=== PATIENT | female | born 1955 | race Caucasian/White ===

== ENCOUNTER → 2017-07-27 | Day surgery (SDC) | payer OTHER ==
[~2017-07-27] VITALS: Ht 170.2 cm; Wt 74.8 kg
[~2017-07-27] MED LIST: ASPIRIN EC81 M1 PO; ATORVASTATIN CA10 M1 PO; CRANBERRY425 MG PO; FISH OIL 1,0001 EAC1 PO; HAIR, SKIN & N1 EACH PO; MAGNESIUM400 M1 PO; VITAMIN B-121000 MC3 PO; VITAMIN D1000 UNIT PO
--- NOTE | 2017-07-27 12:22 | Operative Report ---
Operative/Inv Procedure Report Surgery Date: 07/27/17 Name of Procedure: Modified Lee Bassam bunionectomy right foot Pre-Operative Diagnosis: Hallux abductal valgus deformity right foot Post-Operative Diagnosis: Same Estimated Blood Loss: scant Surgeon/Contract Paralegal: Robert Mathis DPM The patient in the supine position a surgical scrub and drape drape were performed to the right foot up to including medial lateral malleolus. With adequate anesthesia being obtained using 10 mL lidocaine 1% plain to anesthetize the first metatarsophalangeal joint we then used a #15 scalpel blade and made a curvilinear incision over the first metatarsal phalangeal joint right foot. Using a second #15 scalpel and thumb finger both superficial deep subcutaneous tissue carefully resected out [address] and he vessels were identified and clamped and hyfrecated with the Bovie at this point in time between the first and second metatarsal and using self-retaining retractor went down to the intermetatarsal ligament and released the abductor tendon off the proximal phalanx. We then returned to the capsule and using a new #15 scalpel blade made a dorsal linear capsulotomy cut approximately 2.5 cm in length. The capsule was then reflected off proximal capsule both reflected both medially and laterally exposing head of the first metatarsal into the operative site. With the bunion exostosis in the operative site. Then engaged use of [email or web address] oscillating saw and remove the exostosis. The exostosis then removed we then I'm we then made a V cut her Bassam cut through the surgical neck of the metatarsal and transposed the first met head approximately 1.5 mm and a transverse lateral direction. We then he used 0.062 K wire to stabilize the osteotomy site irrigated the osteotome Bassam osteotomy site with saline solution 10 mL and then using pin fixation screw fixation pin and screw fixation put a temporary K wire 0.045 and the osteotomy site and then using a 2.4 screw stabilize the osteotomy site. At this point time remove the small piece of bone from the metatarsal shaft and now having completed the procedure turned to surgical closure. Beginning with 3-0 Dexon this capsule was reapproximated using 3-0 Dexon one continuous horizontal mattress suture from proximal to distal. With the capsule reapproximated we then used XG SAMANTHA I asked material placed over the capsule and then continued with closure using 4-0 Dexon to close the superficial subcutaneous tissue. I've 0 nylon suture we reapproximate skin edges using one continuous horizontal mattress suture. Clean having completed the surgical procedure bump placed Adaptic over the surgical site fluff dressing forefoot compression dressing and finally Coban compression dressing as well The patient was then discharged from the OR stable vital signs given written and oral home care instructions including the following Vicodin 7.5 mg 1 every 4 hours when necessary pain plus Cipro 500 mg in addition she was also instructed to elevate her foot as much as possible over the next 24-48 hours, we've ordered rebound medical ice compression machine to maintain and control edema and pain medication pain as well and given a cam CAM to wear whenever she ambulates. Structural be seen on 08/01/[address] [place] [address] signed Robert mathis DPM thank you Anesthesia: general endotracheal tube (10 mL lidocaine 1% plain, banuelos) Operative/Procedure Note Note: Operative procedure modified Bassam osteotomy right first or first metatarsal right foot
== END ==
LOC: STS 03:23
DX: M20.11 Hallux valgus (acquired), right foot (principal); I25.10 Atherosclerotic heart disease of native coronary artery without angina pectoris; I25.2 Old myocardial infarction; M19.90 Unspecified osteoarthritis, unspecified site; Z79.82 Long term (current) use of aspirin
CPT/HCPCS: 88304; J0131; J2001; J2250; J2405; Q4133